=== PATIENT | male | born 1970 | race Two or more races ===

== ENCOUNTER 2025-04-13 13:51 | Inpatient (IN) | payer MEDICAID ==
[~2025-04-13] VITALS: Ht 167.6 cm; Wt 74.4 kg
[2025-04-13] VITALS (17 sets, daily range): BP systolic 107–146; BP diastolic 76–110; PULSE 79–95; RESP 13–19; TEMP 36.8–36.8072; O2SAT 98–100
[2025-04-13] MEDS: FOLIC ACID 1 MG, THIAMINE HCL 100 MG, MVI, ADULT NO.1 10 ML in DEXTROSE 5% WATER 1,000 ML IV ONE (14:00)
[2025-04-13] MEDS: SODIUM CHLORIDE 0.9% 1,000 ML IV ONE (14:24)
[2025-04-13] MEDS: PROPOFOL 10MG/ML 100ML 100 ML IV SCH (14:24)
[2025-04-13] MEDS: ROCURONIUM BROMIDE 10MG/ML VIAL 5ML IV ONE (14:24)
[2025-04-13] MEDS: ETOMIDATE 2MG/ML 10ML VIAL IV ONE (14:25)
[2025-04-13 14:59] LABS: BASOPHILS % 0.4 % (0.0-2.0); EOSINOPHILS % 1.1 % (0.0-5.0); HEMATOCRIT. 39.5 % (42.0-52.0); HEMOGLOBIN. 13.0 g/dL (14.0-18.0); LYMPHOCYTES % 41.2 % (20.0-50.0); MEAN PLATELET VOLUME 10.1 fl (7.4-10.4); MONOCYTES % 10.1 % (2.0-8.0); NEUTROPHILS % 47.2 % (40.0-76.0); PLATELET 222 x1000/uL (130-400); RED BLOOD CELL COUNT 4.05 mill/uL (4.7-6.1); RED CELL DISTRIBUTION WIDTH 13.7 % (11.6-14.6)
[2025-04-13 15:28] LABS: BG BASE EXCESS -8.2 mmol/L (-2.0-3.0); BG CARBOXYHEMOGLOBIN 1.1 % (0.5-1.5); BG DEOXYHEMOGLOBIN 2.0 % (0.0-5.0); BG FRACTION INSPIRED OXYGEN 50; BG HCO3 ACT 19.8 mmol/L (21.0-28.0); BG METHEMOGLOBIN 0.3 % (0.5-1.5); BG OXYGEN SATURATION 98.0 % (94.0-98.0); BG OXYHEMOGLOBIN 96.6 % (94.0-98.0); BG PCO2 50.4 mmHg (35.0-48.0); BG PEEP (cmH2O) 5.0 cmH2O; BG PH 7.212 (7.350-7.450); BG PO2 145.9 mmHg (83.0-108.0); BG SAMPLE SITE RIGHT RADIAL; BG TIDAL VOLUME(mL) 450.0 mL; BG TOTAL HEMOGLOBIN 13.4 g/dL (13.5-17.5); BG VENT MODE VENT - AC; BG VENT RATE 14.0 set
[2025-04-13 15:32] LABS: CREATININE 1.0 mg/dL (0.6-1.3); UREA NITROGEN BLOOD 14 mg/dL (9-23)
[2025-04-13 15:33] LABS: ASPARTATE AMINOTRANSFERASE 362 IU/L (<34)
[2025-04-13 15:34] LABS: BILIRUBIN DIRECT 0.1 mg/dL (<=3.0); BILIRUBIN TOTAL 0.4 mg/dL (0.1-1.0); PROTEIN TOTAL 6.8 g/dL (6.0-8.3); TROPONIN I HIGH SENSITIVITY 4 ng/L (3.0-53)
[2025-04-13 16:16] LABS: CLARITY URINE CLEAR (CLEAR); COLOR URINE YELLOW (YELLOW); GLUCOSE URINE NEGATIVE (NEGATIVE); KETONES URINE NEGATIVE (NEGATIVE); LEUKOCYTE ESTERASE URINE NEGATIVE (NEGATIVE); NITRITE URINE NEGATIVE (NEGATIVE); OCCULT BLOOD URINE NEGATIVE (NEGATIVE); PH URINE 5.5 (4.5-8.0); PROTEIN URINE 1+ (NEGATIVE); SPECIFIC GRAVITY URINE 1.012 (1.005-1.030); UROBILINOGEN URINE 1.0 E.U./dL (0.2-1.0)
[2025-04-13 16:23] LABS: *AMPHETAMINES SCREEN URINE PRESUMPTIVE POSITIVE (NEGATIVE)
[2025-04-13 16:24] LABS: *BARBITURATES SCREEN URINE NEGATIVE (NEGATIVE); *BENZODIAZEPINES SCREEN URINE NEGATIVE (NEGATIVE); *COCAINE SCREEN URINE PRESUMPTIVE POSITIVE (NEGATIVE); CANNABINOID URINE SCREEN NEGATIVE (NEGATIVE); ECSTASY MDMA SCREEN URINE NEGATIVE (NEGATIVE); METHADONE URINE SCREEN NEGATIVE (NEGATIVE); OPIATES URINE SCREEN NEGATIVE (NEGATIVE); PHENCYCLIDINE URINE SCREEN NEGATIVE (NEGATIVE)
[2025-04-13 16:26] LABS: BACTERIA URINE RARE; RBC URINE NONE SEEN /hpf (0-2); SQUAMOUS EPITHELIAL CELL URINE NONE SEEN /lpf (RARE/1+); WBC URINE 0-2 /hpf (0-2)
[2025-04-13] MEDS ORDERED: IPRATROPIUM/ALBUTEROL 0.5-3(2.5)MG/3ML NEB HHN PRN (16:45)
[2025-04-13] MEDS ORDERED: FENTANYL 2500MCG/250ML PMX 250 ML IV ONE (16:45)
[2025-04-13] MEDS: KCL 20MEQ/100ML PREMIX 100 ML IV SCH (17:09)
[2025-04-13] MEDS: FENTANYL 2500MCG/250ML PMX 250 ML IV ONE (17:11)
[2025-04-13 19:51] LABS: TROPONIN I HIGH SENSITIVITY 35 ng/L (3.0-53)
[2025-04-14] VITALS (87 sets, daily range): BP systolic 92–142; BP diastolic 65–98; PULSE 70–131; RESP 11–27; TEMP 36.7–37.1; O2SAT 92–100
[2025-04-14] MEDS: PROPOFOL 10MG/ML 100ML 100 ML IV PRN (00:15)
[2025-04-14] MEDS: IPRATROPIUM/ALBUTEROL 0.5-3(2.5)MG/3ML NEB HHN SCH (01:05)
[2025-04-14 10:06] LABS: BASOPHILS % 0.3 % (0.0-2.0); EOSINOPHILS % 1.4 % (0.0-5.0); HEMATOCRIT. 34.9 % (42.0-52.0); HEMOGLOBIN. 11.5 g/dL (14.0-18.0); LYMPHOCYTES % 20.6 % (20.0-50.0); MEAN PLATELET VOLUME 10.0 fl (7.4-10.4); MONOCYTES % 10.0 % (2.0-8.0); NEUTROPHILS % 67.7 % (40.0-76.0); PLATELET 167 x1000/uL (130-400); RED BLOOD CELL COUNT 3.64 mill/uL (4.7-6.1); RED CELL DISTRIBUTION WIDTH 13.8 % (11.6-14.6)
[2025-04-14 10:12] LABS: BG BASE EXCESS 2.1 mmol/L (-2.0-3.0); BG CARBOXYHEMOGLOBIN 0.6 % (0.5-1.5); BG DEOXYHEMOGLOBIN 2.4 % (0.0-5.0); BG FRACTION INSPIRED OXYGEN 30; BG HCO3 ACT 26.7 mmol/L (21.0-28.0); BG METHEMOGLOBIN 0.3 % (0.5-1.5); BG OXYGEN SATURATION 97.6 % (94.0-98.0); BG OXYHEMOGLOBIN 96.7 % (94.0-98.0); BG PCO2 41.5 mmHg (35.0-48.0); BG PEEP (cmH2O) 5.0 cmH2O; BG PH 7.426 (7.350-7.450); BG PO2 101.1 mmHg (83.0-108.0); BG SAMPLE SITE RIGHT RADIAL; BG TIDAL VOLUME(mL) 450.0 mL; BG TOTAL HEMOGLOBIN 12.1 g/dL (13.5-17.5); BG VENT MODE VENT - AC; BG VENT RATE 18.0 set
[2025-04-14 10:13] LABS: CREATININE 0.8 mg/dL (0.6-1.3)
[2025-04-14 10:14] LABS: UREA NITROGEN BLOOD 12 mg/dL (9-23)
[2025-04-14 10:16] LABS: PHOSPHORUS 3.7 mg/dL (2.5-4.9)
[2025-04-14] MEDS: THIAMINE HCL 200 MG in SODIUM CHLORIDE 0.9% 98 ML IV SCH (10:21)
[2025-04-14] MEDS: ENOXAPARIN 40MG/0.4ML SYR SUBCUT SCH (12:15)
[2025-04-14] MEDS: POTASSIUM CHLORIDE 20MEQ/PACKET NG SCH (12:15)
[2025-04-14] MEDS: SODIUM CHLORIDE 0.9% 1,000 ML IV ONE (17:30)
[2025-04-14] MEDS ORDERED: MIDAZOLAM HCL 2 MG/2 ML VIAL IV PRN (17:30)
[2025-04-14] MEDS: DEXT 5%/0.9% NACL 1,000 ML IV SCH (17:30)
[2025-04-14] MEDS: MIDAZOLAM HCL 2 MG/2 ML VIAL IV PRN (18:10)
[2025-04-14] MEDS: FENTANYL 2500MCG/250ML PMX 250 ML IV PRN (19:59)
[2025-04-14] MEDS: MIDAZOLAM 100MG/100ML PMX 100 ML IV PRN (21:49)
[2025-04-15] VITALS (103 sets, daily range): BP systolic 97–132; BP diastolic 38–94; PULSE 73–98; RESP 16–28; TEMP 36.9–38.8; O2SAT 88–100
[2025-04-15] MEDS: BLOOD SUGAR DIAGNOSTIC STRIP TEST SCH
[2025-04-15 06:24] LABS: BASOPHILS % 0.2 % (0.0-2.0); EOSINOPHILS % 1.7 % (0.0-5.0); HEMATOCRIT. 33.4 % (42.0-52.0); HEMOGLOBIN. 11.2 g/dL (14.0-18.0); LYMPHOCYTES % 20.2 % (20.0-50.0); MEAN PLATELET VOLUME 10.4 fl (7.4-10.4); MONOCYTES % 13.6 % (2.0-8.0); NEUTROPHILS % 64.3 % (40.0-76.0); PLATELET 146 x1000/uL (130-400); RED BLOOD CELL COUNT 3.42 mill/uL (4.7-6.1); RED CELL DISTRIBUTION WIDTH 13.9 % (11.6-14.6)
[2025-04-15 06:39] LABS: CREATININE 0.7 mg/dL (0.6-1.3); UREA NITROGEN BLOOD 10 mg/dL (9-23)
[2025-04-15 06:41] LABS: PHOSPHORUS 3.1 mg/dL (2.5-4.9)
[2025-04-15] MEDS: THIAMINE HCL 200 MG in SODIUM CHLORIDE 0.9% 98 ML IV SCH (11:03)
[2025-04-15] MEDS: ACETAMINOPHEN 650MG/20.3ML UDC PO PRN (11:17)
[2025-04-15] MEDS: SODIUM CHLORIDE 0.9% 1,000 ML IV ONE (11:17)
[2025-04-15] MEDS: PROPOFOL 10MG/ML 100ML 100 ML IV PRN ×2 (18:55→23:23)
[2025-04-16] VITALS (86 sets, daily range): BP systolic 83–146; BP diastolic 52–106; PULSE 67–93; RESP 12–25; TEMP 36.8–38.3; O2SAT 93–100
[2025-04-16 05:39] LABS: BASOPHILS % 0.2 % (0.0-2.0); EOSINOPHILS % 2.2 % (0.0-5.0); HEMATOCRIT. 28.4 % (42.0-52.0); HEMOGLOBIN. 9.5 g/dL (14.0-18.0); LYMPHOCYTES % 10.1 % (20.0-50.0); MEAN PLATELET VOLUME 9.5 fl (7.4-10.4); MONOCYTES % 11.6 % (2.0-8.0); NEUTROPHILS % 75.9 % (40.0-76.0); PLATELET 140 x1000/uL (130-400); RED BLOOD CELL COUNT 2.92 mill/uL (4.7-6.1); RED CELL DISTRIBUTION WIDTH 13.6 % (11.6-14.6)
[2025-04-16] MEDS: PANTOPRAZOLE SODIUM 40 MG/VIAL IV SCH (09:29)
[2025-04-16 10:03] LABS: CREATININE 0.7 mg/dL (0.6-1.3); TRIGLYCERIDE 115 mg/dL (0-150); UREA NITROGEN BLOOD 8 mg/dL (9-23)
[2025-04-16] MEDS: MIDAZOLAM HCL 5 MG/5 ML VIAL IV PRN (10:21)
[2025-04-16] MEDS: POTASSIUM CHLORIDE 20MEQ/PACKET PO SCH (16:17)
[2025-04-17] VITALS (102 sets, daily range): BP systolic 85–174; BP diastolic 46–116; PULSE 61–93; RESP 16–33; TEMP 36.7–38.3; O2SAT 91–100
[2025-04-17] MEDS: PROPOFOL 10MG/ML 100ML 100 ML IV PRN (00:07)
[2025-04-17] MEDS: MIDAZOLAM HCL 2 MG/2 ML VIAL IV PRN (05:28)
[2025-04-17 06:19] LABS: BASOPHILS % 0.2 % (0.0-2.0); EOSINOPHILS % 5.2 % (0.0-5.0); HEMATOCRIT. 27.5 % (42.0-52.0); HEMOGLOBIN. 9.4 g/dL (14.0-18.0); LYMPHOCYTES % 17.0 % (20.0-50.0); MEAN PLATELET VOLUME 9.7 fl (7.4-10.4); MONOCYTES % 14.7 % (2.0-8.0); NEUTROPHILS % 62.9 % (40.0-76.0); PLATELET 127 x1000/uL (130-400); RED BLOOD CELL COUNT 2.84 mill/uL (4.7-6.1); RED CELL DISTRIBUTION WIDTH 13.2 % (11.6-14.6)
[2025-04-17 06:32] LABS: CREATININE 0.6 mg/dL (0.6-1.3); TRIGLYCERIDE 108 mg/dL (0-150); UREA NITROGEN BLOOD 7 mg/dL (9-23)
[2025-04-17 06:34] LABS: PHOSPHORUS 2.9 mg/dL (2.5-4.9)
[2025-04-17] MEDS: MIDAZOLAM HCL 5 MG/5 ML VIAL IV PRN (07:46)
[2025-04-17] MEDS: POTASSIUM CHLORIDE 20MEQ/PACKET PO NR (09:28)
[2025-04-17] MEDS: DEXMEDETOMIDINE 100 ML IV PRN (16:24)
[2025-04-17] MEDS: LEVETIRACETAM 1000MG PREMIX 100 ML IV SCH (20:51)
[2025-04-17] MEDS: LORAZEPAM 2MG/ML UD SYRINGE IV PRN (23:06)
[2025-04-18] VITALS (109 sets, daily range): BP systolic 83–142; BP diastolic 53–100; PULSE 61–122; RESP 12–32; TEMP 36.6–38.4; O2SAT 82–100
[2025-04-18 06:25] LABS: HEMATOCRIT. 30.3 % (42.0-52.0); HEMOGLOBIN. 10.3 g/dL (14.0-18.0); MEAN PLATELET VOLUME 9.8 fl (7.4-10.4); PLATELET 173 x1000/uL (130-400); RED BLOOD CELL COUNT 3.17 mill/uL (4.7-6.1); RED CELL DISTRIBUTION WIDTH 13.2 % (11.6-14.6)
[2025-04-18 06:36] LABS: CREATININE 0.6 mg/dL (0.6-1.3)
[2025-04-18 06:37] LABS: UREA NITROGEN BLOOD 7 mg/dL (9-23)
[2025-04-18 06:39] LABS: PHOSPHORUS 3.1 mg/dL (2.5-4.9)
[2025-04-18] MEDS: PROPOFOL 10MG/ML 100ML 100 ML IV PRN (07:11)
[2025-04-18] MEDS ORDERED: NON FORMULARY MED XX SCH (11:00)
[2025-04-18] MEDS ORDERED: AMIODARONE HCL 900 MG in DEXT 5% WATER 482 ML IV SCH (11:30)
[2025-04-18 11:40] LABS: BAND% 15.0 % (1.0-6.0); EOSINOPHILS % MANUAL 3.0 % (0.0-5.0); LYMPHOCYTES % MANUAL 9.0 % (20.0-50.0); MONOCYTES % MANUAL 11.0 % (2.0-8.0); NEUTROPHILS % MANUAL 62.0 % (45.0-75.0); PLATELET ESTIMATE NORMAL
[2025-04-18] MEDS: SODIUM CHLORIDE 0.9% 1,000 ML IV ONE (12:12)
[2025-04-18] MEDS: IRON SUCROSE COMPLEX 100 MG/5 ML ML IV SCH (12:12)
[2025-04-18] MEDS: AMIODARONE HCL 150 MG in DEXT 5% WATER 100 ML IV ONE (12:13)
[2025-04-19] VITALS (105 sets, daily range): BP systolic 97–160; BP diastolic 55–132; PULSE 65–87; RESP 13–30; TEMP 36.1–37.5; O2SAT 91–100
[2025-04-19] MEDS: ONDANSETRON HCL 4MG/2ML INJ IV PRN (01:02)
[2025-04-19] MEDS: PROPOFOL 10MG/ML 100ML 100 ML IV PRN (04:41)
[2025-04-19 09:15] LABS: BG BASE EXCESS 3.3 mmol/L (-2.0-3.0); BG CARBOXYHEMOGLOBIN 0.5 % (0.5-1.5); BG DEOXYHEMOGLOBIN 2.4 % (0.0-5.0); BG FRACTION INSPIRED OXYGEN 60; BG HCO3 ACT 28.1 mmol/L (21.0-28.0); BG METHEMOGLOBIN 0.3 % (0.5-1.5); BG OXYGEN SATURATION 97.6 % (94.0-98.0); BG OXYHEMOGLOBIN 96.8 % (94.0-98.0); BG PCO2 43.8 mmHg (35.0-48.0); BG PEEP (cmH2O) 5.0 cmH2O; BG PH 7.425 (7.350-7.450); BG PO2 100.9 mmHg (83.0-108.0); BG SAMPLE SITE RIGHT RADIAL; BG TIDAL VOLUME(mL) 450.0 mL; BG TOTAL HEMOGLOBIN 9.5 g/dL (13.5-17.5); BG VENT MODE VENT - AC; BG VENT RATE 18.0 set
[2025-04-19 09:40] LABS: CREATININE 0.6 mg/dL (0.6-1.3); UREA NITROGEN BLOOD 10 mg/dL (9-23)
[2025-04-19 09:46] LABS: PLATELET 179 x1000/uL (130-400); RED BLOOD CELL COUNT 2.90 mill/uL (4.7-6.1); RED CELL DISTRIBUTION WIDTH 13.0 % (11.6-14.6)
[2025-04-19] MEDS: HALOPERIDOL LACTATE 5MG/ML VIAL IM PRN (11:17)
[2025-04-19] MEDS ORDERED: NOREPINEPHRINE 8MG/250ML PMX 250 ML IV PRN (13:00)
[2025-04-19] MEDS: LACTULOSE 20G/30ML UDC PO NR (18:33)
[2025-04-20] VITALS (100 sets, daily range): BP systolic 95–156; BP diastolic 57–115; PULSE 63–135; RESP 12–29; TEMP 36.4–37.9; O2SAT 90–100
[2025-04-20] MEDS: FENTANYL 2500MCG/250ML PMX 250 ML IV PRN (02:22)
[2025-04-20] MEDS: PROPOFOL 10MG/ML 100ML 100 ML IV PRN (07:57)
[2025-04-20 08:07] LABS: PLATELET 187 x1000/uL (130-400); RED BLOOD CELL COUNT 2.89 mill/uL (4.7-6.1); RED CELL DISTRIBUTION WIDTH 13.0 % (11.6-14.6)
[2025-04-20 08:22] LABS: CREATININE 0.7 mg/dL (0.6-1.3); UREA NITROGEN BLOOD 11 mg/dL (9-23)
[2025-04-20 12:48] LABS: BG BASE EXCESS 4.8 mmol/L (-2.0-3.0); BG CARBOXYHEMOGLOBIN 0.3 % (0.5-1.5); BG DEOXYHEMOGLOBIN 4.0 % (0.0-5.0); BG FRACTION INSPIRED OXYGEN 40; BG HCO3 ACT 29.5 mmol/L (21.0-28.0); BG METHEMOGLOBIN 0.3 % (0.5-1.5); BG OXYGEN SATURATION 96.0 % (94.0-98.0); BG OXYHEMOGLOBIN 95.4 % (94.0-98.0); BG PCO2 44.9 mmHg (35.0-48.0); BG PEEP (cmH2O) 5.0 cmH2O; BG PH 7.436 (7.350-7.450); BG PO2 81.8 mmHg (83.0-108.0); BG SAMPLE SITE RIGHT RADIAL; BG TOTAL HEMOGLOBIN 10.0 g/dL (13.5-17.5); BG VENT MODE VENT - CPAP
[2025-04-21] VITALS (75 sets, daily range): BP systolic 88–162; BP diastolic 59–121; PULSE 70–164; RESP 6–36; TEMP 36.5–37.4; O2SAT 90–99
[2025-04-21] MEDS: RACEPINEPHRINE 2.25% 0.5ML NEB VIAL HHN NR (03:11)
[2025-04-21] MEDS: METHYLPREDNISOLONE SOD SUCC 40MG/ML (ACT-O-VIAL) IV SCH (03:27)
[2025-04-21 05:35] LABS: PLATELET 241 x1000/uL (130-400); RED BLOOD CELL COUNT 3.15 mill/uL (4.7-6.1); RED CELL DISTRIBUTION WIDTH 13.1 % (11.6-14.6)
[2025-04-21 05:43] LABS: CREATININE 0.5 mg/dL (0.6-1.3); UREA NITROGEN BLOOD 11 mg/dL (9-23)
[2025-04-21] MEDS: IPRATROPIUM/ALBUTEROL 0.5-3(2.5)MG/3ML NEB HHN SCH (09:26)
[2025-04-21] MEDS: RACEPINEPHRINE 2.25% 0.5ML NEB VIAL ONE (10:39)
[2025-04-21] MEDS: AMIODARONE 150MG/100ML D5W 100 ML IV NR (11:22)
[2025-04-21] MEDS: KCL 20MEQ/100ML PREMIX 100 ML IV SCH (12:57)
[2025-04-21] MEDS: AMIODARONE HCL 900 MG in DEXT 5% WATER 482 ML IV SCH (12:57)
[2025-04-21] MEDS: IPRATROPIUM/ALBUTEROL 0.5-3(2.5)MG/3ML NEB HHN PRN (16:49)
[2025-04-22] VITALS (17 sets, daily range): BP systolic 122–150; BP diastolic 81–117; PULSE 67–105; RESP 19–27; TEMP 36.4–36.8; O2SAT 88–100
[2025-04-22 09:40] LABS: BG BASE EXCESS 2.2 mmol/L (-2.0-3.0); BG CARBOXYHEMOGLOBIN 0.4 % (0.5-1.5); BG DEOXYHEMOGLOBIN 1.4 % (0.0-5.0); BG FLOW(L/min) 5.00 L/min; BG FRACTION INSPIRED OXYGEN 40; BG HCO3 ACT 26.0 mmol/L (21.0-28.0); BG METHEMOGLOBIN 0.3 % (0.5-1.5); BG OXYGEN SATURATION 98.6 % (94.0-98.0); BG OXYHEMOGLOBIN 97.9 % (94.0-98.0); BG PCO2 37.7 mmHg (35.0-48.0); BG PH 7.457 (7.350-7.450); BG PO2 130.1 mmHg (83.0-108.0); BG SAMPLE SITE RIGHT RADIAL; BG TOTAL HEMOGLOBIN 11.5 g/dL (13.5-17.5); BG VENT MODE MASK - SIMPLE
[2025-04-22] MEDS: METHYLPREDNISOLONE SOD SUCC 40MG/ML (ACT-O-VIAL) IV SCH (21:35)
[2025-04-23] VITALS (16 sets, daily range): BP systolic 90–137; BP diastolic 62–93; PULSE 56–106; RESP 15–29; TEMP 36.4–36.7; O2SAT 91–98
[2025-04-23] MEDS ORDERED: DEXTROSE 50% WATER 50ML SYRINGE IV PRN (13:30)
[2025-04-23] MEDS: BLOOD SUGAR DIAGNOSTIC STRIP TEST SCH (17:12)
[2025-04-23] MEDS: INSULIN LISPRO 100 UNITS/ML SUBCUT SCH (17:12)
[2025-04-24] VITALS (15 sets, daily range): BP systolic 87–135; BP diastolic 52–102; PULSE 51–82; RESP 9–25; TEMP 36.7–36.9; O2SAT 92–98
[2025-04-24 07:22] LABS: CREATININE 0.6 mg/dL (0.6-1.3)
[2025-04-24 07:23] LABS: UREA NITROGEN BLOOD 12 mg/dL (9-23)
[2025-04-24 07:25] LABS: PHOSPHORUS 4.7 mg/dL (2.5-4.9)
[2025-04-24 07:32] LABS: HEMATOCRIT. 33.7 % (42.0-52.0); HEMOGLOBIN. 11.4 g/dL (14.0-18.0); MEAN PLATELET VOLUME 8.6 fl (7.4-10.4); PLATELET 379 x1000/uL (130-400); RED BLOOD CELL COUNT 3.54 mill/uL (4.7-6.1); RED CELL DISTRIBUTION WIDTH 12.6 % (11.6-14.6)
[2025-04-25] VITALS (10 sets, daily range): BP systolic 89–124; BP diastolic 57–82; PULSE 55–79; RESP 11–28; TEMP 36.6–37.7; O2SAT 92–96
[2025-04-25] MEDS: PREDNISONE 20MG TABLET PO SCH (09:41)
[2025-04-25 16:46] LABS: BAND% 1.0 % (1.0-6.0); LYMPHOCYTES % MANUAL 18.0 % (20.0-50.0); MONOCYTES % MANUAL 6.0 % (2.0-8.0); NEUTROPHILS % MANUAL 75.0 % (45.0-75.0); PLATELET ESTIMATE NORMAL
[2025-04-26] VITALS (8 sets, daily range): BP systolic 81–137; BP diastolic 63–75; PULSE 55–76; RESP 10–22; TEMP 36.3–37.2; O2SAT 90–99
[2025-04-27] VITALS: BP 115/70; PULSE 68; RESP 18; TEMP 36.3; O2SAT 98
[2025-04-27 04:00] VITALS: BP 100/59; PULSE 60; RESP 18; TEMP 36.3; O2SAT 100
[2025-04-27 08:00] VITALS: BP 110/67; PULSE 64; RESP 17; TEMP 36.7; O2SAT 97
[2025-04-27 12:00] VITALS: BP 102/64; PULSE 61; RESP 18; TEMP 36.6; O2SAT 97
[2025-04-27 16:00] VITALS: BP 98/60; PULSE 59; RESP 17; TEMP 36.5; O2SAT 98
[2025-04-27] MEDS ORDERED: LEVE1000 MT (16:27)
[2025-04-27] MEDS ORDERED: PANT20TA17 MT (16:27)
[2025-04-27 17:09] VITALS: BP 102/62; PULSE 61; RESP 18; TEMP 97.9
== END 2025-04-27 17:55 | DRG 816 ==
LOC: ER 13:51 → EDBEDREQSVC 16:36 → EDBEDREQTM 16:36 → EDBEDREQ 16:37 → ENRESERV 18:01 → MICUSO 20:29 → EDBD 20:29 → 5EST 04-21 18:16 → 8EST 04-26 18:21
PROVIDERS: ADMIT Student in an Organized Health Care Education/Training Program; ATTEND Student in an Organized Health Care Education/Training Program
PROC: 0BH17EZ Insertion of Endotracheal Airway into Trachea, Via Natural or Artificial Opening (ICD-10-PCS; principal; 2025-04-13)
PROC: 5A1955Z Respiratory Ventilation, Greater than 96 Consecutive Hours (ICD-10-PCS; 2025-04-13)
DX: T40.5X1A Poisoning by cocaine, accidental (unintentional), initial encounter (principal); G92.8 Other toxic encephalopathy; J96.01 Acute respiratory failure with hypoxia; I48.92 Unspecified atrial flutter; R56.9 Unspecified convulsions; F19.10 Other psychoactive substance abuse, uncomplicated; I10 Essential (primary) hypertension; F10.139 Alcohol abuse with withdrawal, unspecified; T40.411A Poisoning by fentanyl or fentanyl analogs, accidental (unintentional), initial encounter; E87.29 Other acidosis; I48.91 Unspecified atrial fibrillation; J32.2 Chronic ethmoidal sinusitis; E87.6 Hypokalemia; D72.821 Monocytosis (symptomatic); F14.90 Cocaine use, unspecified, uncomplicated; F15.90 Other stimulant use, unspecified, uncomplicated; F10.129 Alcohol abuse with intoxication, unspecified; M48.02 Spinal stenosis, cervical region; L57.0 Actinic keratosis; L84 Corns and callosities; Y90.6 Blood alcohol level of 120-199 mg/100 ml; Z59.00 Homelessness unspecified; Z91.199 Patient's noncompliance with other medical treatment and regimen due to unspecified reason; Y92.89 Other specified places as the place of occurrence of the external cause
CPT/HCPCS: 31500; 31720; 36415; 36600; 70551; 71045; 80048; 80076; 80305; 80307; 80320; 80329; 81003; 82375; 82550; 82728; 82805; 82962; 83540; 83550; 83735; 84100; 84478; 84484; 85025; 85027; 93005; 93306; 93970; 94002; 94003; 94070; 94640; 94664; 99291; A4606; A4615; J0282; J1630; J1650; J1953; J2060; J2250; J2405; J2470; J2704; J2919; J3010; J3411; J3480; J3490; J7030; J7042; J7050; J7060; J7070; J7512; G0480